=== PATIENT | female | born 1985 | race Caucasian/White ===

== ENCOUNTER → 2016-07-13 | Outpatient (CLI) | payer BC ==
[~2016-07-13] MED LIST: B COMPLEX #11 TAB; OMEGA-3 1000 MG1 CAP PO; PRENATAL1 TA7 PO; VITAMIN D 1001000 IU; VITAMINC1000TA
== END ==
LOC: SUN.DIA 08:43
DX: O24.419 Gestational diabetes mellitus in pregnancy, unspecified control (principal); Z3A.29 29 weeks gestation of pregnancy
CPT/HCPCS: G0108

== ENCOUNTER → 2016-07-20 | Outpatient (CLI) | payer BC | LOC: SUN.DIA 13:05 | DX: O24.419 Gestational diabetes mellitus in pregnancy, unspecified control (principal); Z3A.28 28 weeks gestation of pregnancy | CPT/HCPCS: G0108 ==

== ENCOUNTER 2016-08-02 16:19 | Inpatient (IN) | payer BC ==
[~2016-08-02] VITALS: Ht 170.2 cm; Wt 82.3 kg
[2016-10-07] VITALS (34 sets, daily range): BP systolic 103–141; BP diastolic 53–81; PULSE 59–110; TEMP 98.3–99
[2016-10-07] MEDS ORDERED: OMEGA-3 1000 MG1 CAP PO (06:21)
[2016-10-07] MEDS ORDERED: B COMPLEX #11 TAB (06:21)
[2016-10-07] MEDS ORDERED: PRENATAL1 TA7 PO (06:21)
[2016-10-07] MEDS ORDERED: VITAMINC1000TA (06:22)
[2016-10-07] MEDS ORDERED: VITAMIN D 1001000 IU (06:23)
[2016-10-07 08:48] LABS: HEMATOCRIT 39.8 % (37.0-47.0); HEMOGLOBIN 14.1 g/dl (12.5-16.0); MEAN CELL VOLUME 92 fl (80.0-100.0); MEAN CORPUSCULAR HEMOGLOBIN 33 pg (27.0-31.0); MEAN CORPUSCULAR HGB CONC 35 g/dl (33.0-37.0); MEAN PLATELET VOLUME 9.6 fl (7.4-10.4); PLATELET COUNT 234 K/mm3 (130-400); RED BLOOD COUNT 4.31 M/mm3 (4.10-5.30); REDCELL DISTRIBUTION WIDTH-CV 12.7 % (11.5-14.5); WHITE BLOOD COUNT 9.3 K/mm3 (4.8-10.8)
[2016-10-07 08:49] LABS: ADD PATHOLOGY DIFF REVIEW NO
[2016-10-07 09:33] LABS: BAND 5 % (0-10); EOSINOPHIL 2 % (0-4); NEUTROPHILS 69 % (42.0-75.2); TOTAL CELLS COUNTED 100
[2016-10-07 09:34] LABS: PLATELET ESTIMATE NORMAL (NORMAL)
[2016-10-08] VITALS (7 sets, daily range): BP systolic 95–120; BP diastolic 51–70; PULSE 77–107; TEMP 97.7–98.5
[2016-10-09 08:00] VITALS: BP 105/73; PULSE 87; TEMP 97.4
== END 2016-10-09 16:30 | disposition home or self-care (01) | DRG 775 ==
LOC: EDSTATUS 09-30 09:10 → LDRO 09-30 16:19 → LDR 10-07 07:10 → OB 10-07 21:48 → LDR 10-07 22:10 → OB 10-09 16:30
PROVIDERS: Obstetrics & Gynecology
PROC: 10E0XZZ Delivery of Products of Conception, External Approach (ICD-10-PCS; principal; 2016-10-07)
PROC: 0KQM0ZZ Repair Perineum Muscle, Open Approach (ICD-10-PCS; 2016-10-07)
DX: O48.0 Post-term pregnancy (principal); O70.1 Second degree perineal laceration during delivery; O77.0 Labor and delivery complicated by meconium in amniotic fluid; O69.81X0 Labor and delivery complicated by cord around neck, without compression, not applicable or unspecified; O24.420 Gestational diabetes mellitus in childbirth, diet controlled; Z3A.41 41 weeks gestation of pregnancy; Z37.0 Single live birth
CPT/HCPCS: J2590; J7120

== ENCOUNTER → 2016-10-13 | Outpatient (CLI) | payer BC ==
--- NOTE | 2016-10-13 14:47 | NUR ---
Pt, Julia Perez, into office for consult with six day old baby boy, Los Perez, for a evaluation and try to breastfeed without nipple shield. Los was born on [birth year] and weighed 7#6.2oz (3350 gms). Yesterday at Dr. Vasquez's office he weighed 7#4oz, and today he weighs 7#4.5oz. Julia is advised on stimulation of the nipple and then how to compress and push more areola into Los's mouth. He latches well and swallows are noted. Julia is instructed on how to tell he is swallowing and listening for frequency to determine quality of work. After nursing one side Los has a weight gain of 2.1oz. He appears content, Julia tries latching for the practice of technique, Los is not interested. Plan of care: ad evelina, follow up with Dr. Vasquez as planned, questions invited and answered.
== END ==
LOC: OLC 13:39
DX: Z39.1 Encounter for care and examination of lactating mother (principal); Z71.89 Other specified counseling

== ENCOUNTER 2019-11-10 05:35 | Inpatient (IN) | payer BC ==
[2019-11-10] VITALS (15 sets, daily range): BP systolic 103–150; BP diastolic 60–87; PULSE 60–90; TEMP 97.8–98.9
[~2019-11-10] VITALS: Ht 172.7 cm; Wt 87.3 kg
--- NOTE | 2019-11-10 05:35 | NUR ---
PT TO UNIT VIA WHEELCHAIR WITH COMPLAINTS OF CONTRACTIONS THAT STARTED YESTERDAY EVENING BUT HAVE BECOME MORE INTENSE SINCE APPROXIMATELY 0100. PT ORIENTED TO ROOM, CHANGED INTO GOWN SVE PERFORMED, VS OBTAINED, EFMX2 APPLIED.
--- NOTE | 2019-11-10 06:35 | NUR ---
Report from Puneet Bruce RN and care of patient assumed at this time. IV started at 0635 by Puneet Bruce RN. Patient up on birthing ball moaning through contractions. 0638- Patient requests SVE. SVE 7/100/-2 per Puneet Bruce RN. Dr. Pruitt notified by this RN and requested to come to hospital. Physician in transit. RN remains at bedside. 0650- Patient requests SVE. SVE 8/100/0 per this RN. RN remains at bedside. 07- Dr. Simpson updated on patient, in transit. 07- Dr. Pruitt on unit. Updated on patient. Patient requesting AROM and reports increased pressure. 07- Dr. Pruitt at bedside. SVE per provider 9100/0. 0712- AROM by Dr. Pruitt for small amount of clear fluid. Pericare given. RN remains at bedside. Nursery RN notified. 0715- Patient reports urge to push. Dr. Simpson called to bedside. Patient prepped for delivery. 0720- Patient begins to push with contractions in LL position with physician at bedside. Nursery RN at bedside. Periprep completed. 0730- of viable female attended by . Infant to mother's abdomen, care of infant to Wyatt Andrade RN. Apgars 8/9/9. 0735- Spont delivery of placenta. Pitocin bolus started at 333ml.hr/protocol. Fundus firm and at umbilicus. Second degree perineal laceration repaired by Dr. Simpson using lidocaine. Patient tolerates well. Vaginal bleeding WNL. Pericare given and ice pack applied. Patient updated on plan of care and safety.
[2019-11-10 06:51] LABS: HEMATOCRIT 43.4 % (37.0-47.0); MEAN CELL VOLUME 93 fl (80.0-100.0); MEAN CORPUSCULAR HEMOGLOBIN 32 pg (27.0-31.0); MEAN CORPUSCULAR HGB CONC 35 g/dl (33.0-37.0); MEAN PLATELET VOLUME 9.7 fl (7.4-10.4); PLATELET COUNT 225 K/mm3 (130-400); RED BLOOD COUNT 4.67 M/mm3 (4.10-5.30); REDCELL DISTRIBUTION WIDTH-CV 13.2 % (11.5-14.5)
[2019-11-10 10:15] LABS: BAND 12 % (0-10); LYMPHOCYTE 9 % (20.0-51.0); NEUTROPHILS 72 % (42.0-75.2)
--- NOTE | 2019-11-10 12:00 | NUR ---
Patient offered COVID-19 test, refuses.
[2019-11-11 04:35] VITALS: BP 115/69; PULSE 81; TEMP 98.2
[2019-11-11 07:30] VITALS: BP 121/74; PULSE 92; TEMP 98.3
--- NOTE | 2019-11-11 10:24 | NUR ---
Initial visit; Mom thanked for offering congratulations for the of her daughter. 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
[2019-11-11] MEDS ORDERED: MOTRIN 800800 MG/TAB PO (11:13)
--- NOTE | 2019-11-11 11:19 | NUR ---
Rest in bed, alert. Tylenol 650 mg given as ordered.
== END 2019-11-11 13:50 | disposition home or self-care (01) | DRG 807 ==
LOC: LDRO 05:35 → LDR 05:35 → LDRO 06:30 → LDR 06:32 → OB 06:32
PROVIDERS: Obstetrics & Gynecology; ADMIT Student in an Organized Health Care Education/Training Program
PROC: 10E0XZZ Delivery of Products of Conception, External Approach (ICD-10-PCS; principal; 2019-11-10)
PROC: 0KQM0ZZ Repair Perineum Muscle, Open Approach (ICD-10-PCS; 2019-11-10)
PROC: 10907ZC Drainage of Amniotic Fluid, Therapeutic from Products of Conception, Via Natural or Artificial Opening (ICD-10-PCS; 2019-11-10)
DX: O48.0 Post-term pregnancy (principal); Z37.0 Single live birth; O70.1 Second degree perineal laceration during delivery; Z3A.40 40 weeks gestation of pregnancy
CPT/HCPCS: J2590; J7120